=== PATIENT | female | born 1960 ===

== ENCOUNTER 2021-08-04 08:59 | Outpatient (CLI) | payer OTHER | END 2021-08-04 09:01 | disposition home or self-care (01) | LOC: SONOGRAMA 08:59 | PROVIDERS: ATTEND Pathology Anatomic Pathology & Clinical Pathology | DX: E04.1 Nontoxic single thyroid nodule (principal) ==

== ENCOUNTER 2022-11-18 08:15 | Inpatient (IN) | payer OTHER ==
[~2022-11-18] VITALS: Ht 165.1 cm; Wt 105.2 kg
[2022-11-19] MEDS ORDERED: ATIVAN0.5 M1 PO (13:29)
[2022-11-19] MEDS ORDERED: RESTORIL30 M1 PO (13:29)
[2022-11-19] MEDS ORDERED: QUETIAPINE FUMA25 MG PO (13:30)
[2022-11-19] MEDS ORDERED: PAXIL20 MG PO (13:31)
[2022-11-19] MEDS ORDERED: SINGULAIR10 MG PO (13:31)
[2022-11-19] MEDS ORDERED: SYMBIC IH (13:32)
[2022-11-19] MEDS ORDERED: XELPROS2.5 ML OP (13:33)
[2022-11-19] MEDS ORDERED: WELLBUTRIN SR150 MG PO (13:33)
[2022-11-19] MEDS ORDERED: LAMICTAL100 MG PO (13:34)
[2022-11-19] MEDS ORDERED: GABAPEN PO (13:35)
[2022-11-19] MEDS ORDERED: HORIZANT300 MG PO (13:35)
[2022-11-19] MEDS ORDERED: FLUTICA (13:36)
[2022-11-19] MEDS ORDERED: OZEMPIC0.25 MG/02 (13:38)
[2022-11-23 14:17] LABS: HEMATOCRIT 33.7 % (36.0-45.00); HEMOGLOBIN 10.8 g/dL (12.0-15.00); MEAN CELL VOLUME 89.4 fL (80.00-100.00); MEAN CORPUSCULAR HEMOGLOBIN 28.7 pg (27.00-32.0); MEAN CORPUSCULAR HGB CONC 32.1 g/dl (32.0-36.0); PLATELET COUNT 242 K/uL (150-450); RED BLOOD COUNT 3.77 M/uL (4.00-6.00); RED CELL DISTRIBUTION WIDTH 14.3 % (11.5-14.5)
[2022-11-23 14:47] LABS: ALBUMIN 3.3 gm/dL (3.4-5.0); CALCIUM 8.2 mg/dL (8.5-10.1); CREATININE SERUM 0.71 mg/dL (0.55-1.02); GFR 83.14; MAGNESIUM 1.7 mg/dL (1.8-2.4); PHOSPHOROUS 3.3 mg/dL (2.5-4.9); POTASSIUM 3.57 mEq/L (3.5-5.1)
[2022-11-24 06:31] LABS: HEMATOCRIT 31.9 % (36.0-45.00); HEMOGLOBIN 10.8 g/dL (12.0-15.00); MEAN CORPUSCULAR HEMOGLOBIN 29.7 pg (27.00-32.0); MEAN CORPUSCULAR HGB CONC 33.7 g/dl (32.0-36.0); PLATELET COUNT 218 K/uL (150-450); RED BLOOD COUNT 3.63 M/uL (4.00-6.00); RED CELL DISTRIBUTION WIDTH 14.3 % (11.5-14.5)
[2022-11-24 07:02] LABS: ALBUMIN 2.8 gm/dL (3.4-5.0); CALCIUM 7.8 mg/dL (8.5-10.1); CREATININE SERUM 0.6 mg/dL (0.55-1.02); GFR 100.97; MAGNESIUM 1.7 mg/dL (1.8-2.4); PHOSPHOROUS 2.7 mg/dL (2.5-4.9); POTASSIUM 3.31 mEq/L (3.5-5.1)
[2022-11-24] MEDS ORDERED: FLONASE16 GM (08:26)
[2022-11-24] MEDS ORDERED: PROVENTIL HFA6.7 GM (08:26)
[2022-11-24] MEDS ORDERED: SYMBICORT 80/10.2 GM (08:27)
[2022-11-24] MEDS ORDERED: METFORMIN HCL500 M4 (08:27)
[2022-11-24] MEDS ORDERED: PRAVASTATIN SOD20 MG (08:27)
[2022-11-24] MEDS ORDERED: SYNTHROID50 MCG (08:27)
[2022-11-24] MEDS ORDERED: LOSARTAN POTAS100 MG (08:27)
[2022-11-24] MEDS ORDERED: AZELASTINE137 MCG/0. (08:27)
[2022-11-24] MEDS ORDERED: GABAPENTIN300 M2 (08:27)
[2022-11-25 08:11] LABS: CALCIUM 8.3 mg/dL (8.5-10.1); CREATININE SERUM 0.57 mg/dL (0.55-1.02); GFR 107.13; POTASSIUM 3.91 mEq/L (3.5-5.1)
[2022-11-26 07:20] LABS: HEMATOCRIT 34.6 % (36.0-45.00); HEMOGLOBIN 11.5 g/dL (12.0-15.00); MEAN CELL VOLUME 88.7 fL (80.00-100.00); MEAN CORPUSCULAR HEMOGLOBIN 29.5 pg (27.00-32.0); MEAN CORPUSCULAR HGB CONC 33.3 g/dl (32.0-36.0); PLATELET COUNT 255 K/uL (150-450); RED CELL DISTRIBUTION WIDTH 14.6 % (11.5-14.5)
[2022-11-26 07:52] LABS: ALBUMIN 2.8 gm/dL (3.4-5.0); CALCIUM 8.4 mg/dL (8.5-10.1); CREATININE SERUM 0.68 mg/dL (0.55-1.02); GFR 87.39; MAGNESIUM 2.1 mg/dL (1.8-2.4); PHOSPHOROUS 4.2 mg/dL (2.5-4.9); POTASSIUM 4.36 mEq/L (3.5-5.1)
[2022-11-26] MEDS ORDERED: PEPCID AC20 MG PO (09:23)
[2022-11-26] MEDS ORDERED: TRAM1TAB98 PO (09:23)
== END 2022-11-26 10:32 | disposition home or self-care (01) | DRG 331 ==
LOC: SURG 11-23 07:26 → O/R 11-23 07:26 → SURG 11-23 09:15
PROVIDERS: Internal Medicine; ADMIT Surgery; ATTEND Surgery
PROC: 07BB4ZX Excision of Mesenteric Lymphatic, Percutaneous Endoscopic Approach, Diagnostic (ICD-10-PCS; 2022-11-23)
PROC: 0DBU4ZZ Excision of Omentum, Percutaneous Endoscopic Approach (ICD-10-PCS; 2022-11-23)
PROC: 0DTF4ZZ Resection of Right Large Intestine, Percutaneous Endoscopic Approach (ICD-10-PCS; principal; 2022-11-23 11:15)
DX: D37.4 Neoplasm of uncertain behavior of colon (principal); D12.3 Benign neoplasm of transverse colon